=== PATIENT | female | born 2000 | race Caucasian/White ===

== ENCOUNTER 2024-02-01 13:54 | Outpatient (AMB) | payer OTHER, SELFPAY ==
--- NOTE | 2024-02-01 13:55 | A.OFFVIS_ITS ---
Vital Signs 02/01/24 13:57 Height 5 ft 4 in Weight 178 lb 9.191 oz BMI 30.6 BP 112/68 Blood Pressure Location Lt brachial Position Sitting Pulse 99 Intake Visit Reasons: GI consult Intake Note: Lori presents in the office as a GI consult. CC: She states that the last year she gets bloated after eating. After gluten she will have pains in her stomach and bloating. No irregular bowel movements. Little bit of gas along with the bloating. Denies acid reflux. Economic Historian Required: No Allergies No Known Allergies Allergy (Verified 02/01/24 14:01) HPI HPI GI consult: Details: 23-year-old female with no significant past medical history is here today for initial consultation. Patient is accompanied by her mother. Patient was just discharged from her [facility] and does not have a PCP. Patient reports epigastric pain and postprandial abdominal bloating depending on what she eats. Patient denies dyspepsia, dysphagia or odynophagia. Denies melena, hematochezia, unintentional weight loss or ribbon like stools. Patient reports that depending on what she eats she will have those symptoms. Noticed more with gluten. Patient denies being under stress. Does have a busy job, however is able to manage her stress without any issues. Patient reports that her symptoms have been going on for quite some time. [facility] Family History (Updated 02/01/24 @ 14:01 by EARLINE Bonner) Paternal Grandmother Colon cancer Review of Systems Const Denies weight gain and Denies weight loss ENT Reports no additional complaints, Denies dysphagia and Denies odynophagia Card Reports no additional complaints Resp Reports no additional complaints GI Reports abdominal pain (Occasional epigastric), Denies belching, Denies melena, Reports bloating, Denies change in bowel habits, Denies dysphagia, Denies excessive flatus, Denies dyspepsia, Denies heartburn, Denies diarrhea, Denies loose stools, Denies nausea, Denies odynophagia and Denies vomiting Reports no additional complaints Musc Reports no additional complaints Neuro Reports no additional complaints Psych Reports no additional complaints Endo Reports no additional complaints Physical Exam Vital Signs: Last Vital Signs Pulse 99 02/01/24 13:57 BP 112/68 02/01/24 13:57 BMI result Body Mass Index 30.6 Const General: healthy appearing and no acute distress Nutritional Appearance: obese Orientation/consciousness: patient oriented x3 Resp Effort & Inspection: normal respiratory effort, able to speak in complete sentences, no tracheal deviation and symmetric chest movement Auscultation: clear to auscultation bilaterally Cardio Rate: regular rate GI Inspection: Yes normal to inspection and No distended Palpation (GI): Soft to palpation, not firm, nontender and No hepatosplenomegaly present Auscultation: normal bowel sounds General: Yes no CVA tenderness Back/Spine/Pelvis Back: no CVA tenderness Skin General skin exam: elasticity normal, turgor normal and dry skin Neuro General: patient oriented x3 Psych Appearance: grossly normal Mental Status: mental status grossly normal Assessment & Plan Assessment & Plan (1) Postprandial abdominal bloating: Code(s): R14.0 - Abdominal distension (gaseous) (2) Abdominal pain: Code(s): R10.9 - Unspecified abdominal pain Qualifiers: Abdominal location: generalized Qualified Code(s): R10.84 - Generalized abdominal pain Plan Will check transglutaminase to rule out celiac, vitamin B12 and folate and vitamin-D levels. Discussed with patient avoiding dietary triggers and late night snacking staying upright for minimum 3 hours after meals discussed with patient. Patient will try low FODMAP diet. List of food recommended as well as list of food to avoid given to patient. List of phone numbers given to patient to find PCP. Patient will follow-up on as needed basis. She is agreeable to this plan and verbalizes understanding of instructions. She was given the opportunity to ask questions and all questions answered. Thank you for allowing the [place] in her care Orders: Orders Transglutaminase IgA 02/01/24 R10.9 - Unspecified abdominal pain Vitamin B12 and Folate 02/01/24 R19.7 - Diarrhea, unspecified Vitamin D 25-OH (D2 and D3) 02/01/24 E55.9 - Vitamin D deficiency, unspecified Coding Level of Care Code New Pt Level 3 (57782) Diagnoses Postprandial abdominal bloating R14.0 Generalized abdominal pain R10.84 Abdominal location: generalized Time Spent (min) 40 Comment 30 minutes spent with patient and additional 10 minutes spent reviewing her records
[2024-02-01 13:57] VITALS: BP 112/68; PULSE 99; BMI 30.6
== END 2024-02-01 14:43 | disposition home or self-care (01) ==
PROVIDERS: Visit Provider Nurse Practitioner Family
DX: R14.0 Abdominal distension (gaseous) (principal); R10.84 Generalized abdominal pain
CPT/HCPCS: 99203

== ENCOUNTER → 2024-02-01 13:54 | Outpatient (BNVA) | payer OTHER, SELFPAY | PROVIDERS: Visit Provider Nurse Practitioner Family ==